=== PATIENT | male | born 1945 | race Caucasian/White ===

== ENCOUNTER 2016-08-22 10:15 | Emergency (ER) | payer MEDICARE, OTHER ==
--- NOTE | 2016-08-22 10:35 | ED Physician Documentation ---
General Adult - HISTORIAN Historian: patient - HPI Stated Complaint: sob Chief Complaint: General Adult Onset: hours Timing: still present Severity: moderate Further Comments: yes (Pt is a 71 yo male sent from jail for low blood pressure readings there and complaint of weakness. Pt is developmentally delayed. No c/o n/v, fever, sob. Pt has hx frequent UTI's.) - ROS CONST: weakness, other (malaise) EYES/ENT: none CVS/RESP: none GI/: none MS/SKIN/LYMPH: none - PAST HX Past History: hypertension, other (HLD, DM, seizures, GERD) Allergies/Adverse Reactions: Allergies Allergy/AdvReac Type Severity Reaction Status Date / Time No Known Allergies Allergy Verified 08/22/16 11:01 Home Medications: Ambulatory Orders Medication Instructions Recorded Lamotrigine [Lamictal] 75 mg PO D 12/10/12 Paliperidone [Invega] 9 mg PO D 12/03/15 Acetaminophen [Tylenol] 650 mg PO Q4 PRN 08/22/16 Ipratropium/Albuterol Sulfate 3 ml NEB TID 08/22/16 [Duoneb] Melatonin 6 mg PO HS 08/22/16 Omeprazole [Prilosec] 40 mg PO QDAY 08/22/16 - SOCIAL HX Smoking History: non-smoker - FAMILY HX Family History: No - VITAL SIGNS Vital Signs: Vital Signs Temp Pulse Resp BP Pulse Ox 96/53 03/03/16 14:00 - REVIEWED ASSESSMENTS Nursing Assessment Reviewed: Yes Vitals Reviewed: Yes Progress - Progress Progress: CXR: Low lung volumes are observed. There is no infiltrate or pleural effusion. Heart size and pulmonary vascularity are upper normal. Osseous structures are unremarkable. NS 1 L IVF much improved Bandemia Rx Levaquin 500 mg po qd x 7 days, 1st dose in ER. - EKG/XRAY/CT EKG: NSR (HR=75; LBBB.) ED Results Lab/Radiology - Orders Orders: ED Orders Category Date Time Status Continuous EKG monitoring Q30M Care 08/22/16 10:27 Active Continuous Pulse Oximetry Q30M Care 08/22/16 10:[address] Saline Lock/IV NOW Care 08/22/16 10:27 Active CHEST 1 VIEW [RAD] Stat Exams 08/22/16 10:27 Ordered CBC/PLATELET/DIFF Routine Lab 08/22/16 10:30 Received CMP Routine Lab 08/22/16 10:30 Received CREATINE KINASE Routine Lab 08/22/16 10:30 Received TROPONIN I (cTnI) Stat Lab 08/22/16 10:30 Received Chem Sticks Med 08/23/16 07:30 Ordered 1 each CHEMQ EKG WITH COMPARISON Stat Ther 08/22/16 10:27 Ordered General Adult Physical Exam - PHYSICAL EXAM GENERAL APPEARANCE: mild distress EENT: eye inspection normal, ENT inspection normal, pharynx normal NECK: normal inspection, supple RESPIRATORY: no resp distress, chest non-tender, breath sounds normal, other ( distant breath sounds) CVS: reg rate & rhythm, heart sounds normal ABDOMEN: soft, no organomegaly, normal bowel sounds SKIN: warm/dry, normal color EXTREMITIES: non-tender, normal range of motion NEURO: motor nml, sensation nml, other (baseline ms) Discharge Clincal Impression: Bandemia, Hx of recurrent urinary tract infection, Dehydration, Estrellita infection of genital region Referrals: Cassius Beyer MD [Primary Care Provider] - Home Medications: Ambulatory Orders Lamotrigine [Lamictal] 75 mg PO D 12/10/12 Paliperidone [Invega] 9 mg PO D 12/03/15 Acetaminophen [Tylenol] 650 mg PO Q4 PRN 08/22/16 Ipratropium/Albuterol Sulfate [Duoneb] 3 ml NEB TID 08/22/16 Melatonin 6 mg PO HS 08/22/16 Omeprazole [Prilosec] 40 mg PO QDAY 08/22/16 Condition: Good Disposition: 04 XFER FDC Decision to Admit: NO Decision Time: 13:32
[2016-08-22] MEDS ORDERED: 0.9 % SODIUM CHLORIDE 500 ML IV ONE ×2 (10:42→12:39)
[2016-08-22 10:51] LABS: eGFR (African) > 60; eGFR (Non-African) > 60
[2016-08-22 11:01] LABS: MONOCYTES % 1 % (0-11); SEGMENTED NEUTROPHILS % 79 % (39-79)
[2016-08-22 12:44] LABS: APPEARANCE,URINE Slightly Cloudy (CLEAR); COLOR,URINE Amber (YELLOW); OCCULT BLOOD,URINE Negative (NEGATIVE); UROBILINOGEN URINE 0.2 Eu (0.2-1.0)
[2016-08-22 12:56] LABS: AMORPHOUS SEDIMENT,UR FEW (NEGATIVE)
[2016-08-22] MEDS ORDERED: NYSTATIN POWDER BOTTLE TP SCH (13:00)
[2016-08-22] MEDS ORDERED: LEVOFLOXACIN 500 MG TABLET PO ONE (13:16)
[2016-08-22 13:53] VITALS: BP 132/64
--- NOTE | 2016-08-22 18:55 | Diagnostic Imaging Report ---
ANDREA VICENTE [facility] [address] [facility] [address] [place] [address]. [address] Report Submission Date: Aug 22, 2016 11:36:31 AM CDT Patient Study Name: MELCHOR HURD Date: Aug 22, 2016 11:06:57 AM CDT Modality Type: CR Gender: M Description: CHEST : 45 Institution: [facility] Physician: ANDREA VICENTE Portable chest History: Cough Findings: Low lung volumes are observed. There is no infiltrate or pleural effusion. Heart size and pulmonary vascularity are upper normal. Osseous structures are unremarkable. Impression: Low lung volumes. Electronically signed on Aug 22, 2016 11:36:31 AM CDT by: Melchor TERRELL
== END 2016-08-22 13:45 ==
LOC: ED 10:15
DX: N39.0 Urinary tract infection, site not specified (principal); E86.0 Dehydration
CPT/HCPCS: 51701; 71010; 80053; 81002; 82550; 83880; 84484; 85025; 87040; 96360; 99283; 99284; J7060; S1016

== ENCOUNTER 2017-03-03 12:20 | Emergency (ER) | payer MEDICARE, OTHER ==
[2017-03-03 12:46] LABS: eGFR (African) > 60; eGFR (Non-African) > 60
[2017-03-03 13:49] LABS: APPEARANCE,URINE Clear (CLEAR); COLOR,URINE Yellow (YELLOW); OCCULT BLOOD,URINE Negative (NEGATIVE)
[2017-03-03 13:55] LABS: AMORPHOUS SEDIMENT,UR FEW (NEGATIVE)
[2017-03-03 14:21] LABS: BASO % 0.2 % (0.0-1.5); EOS % 0.3 % (0.0-6.8); MCH. 30.3 pg (28.0-34.0); MCV 87.5 fL (80.0-100.0); MONOCYTE % 5.1 % (0.0-11.0); MONOCYTE ABS # 0.44 thou/uL (0.00-0.90); PLATELET COUNT 256 thou/uL (130-400)
[2017-03-03 14:26] VITALS: BP 97/59
--- NOTE | 2017-03-03 15:26 | Diagnostic Imaging Report ---
NELLIE HARRELL (ETHAN) - ER [facility] [address] [facility].[address] [address] Report Submission Date: Mar 03, 2017 12:58:11 PM CDT Patient Study Name: MELCHOR HURD Date: Mar 03, 2017 12:40:39 PM CDT Modality Type: CR Gender: M Description: CHEST : 45 Institution: [facility] Physician: NELLIE HARRELL) - ER Ap portable upright radiographs of the chest Clinical history: Cough and dyspnea Comparison August 22, 2016 Technique: anterior /posterior portable upright Findings: The lung diaz are clear. Cardiomegaly and aortic tortuosity are stable. Lung diaz are better ventilated. There is thoracic spondylosis. No pleural effusion is seen. There is no hilar or mediastinal mass. Impression: No acute pulmonary disease Unchanged cardiomegaly and aortic tortuosity Improve lung filled ventilation Electronically signed on Mar 03, 2017 12:58:11 PM CDT by: Jose TERRELL
--- NOTE | 2017-03-10 19:28 | ED Physician Documentation ---
General Adult - HISTORIAN Historian: patient, other ([facility] staff) - HPI Stated Complaint: pale per [facility] Chief Complaint: General Adult Further Comments: yes (71 year old male patient brought in via EMS from [facility]. Staff states patient was "hypotension", pale and SOB earlier today. No BP documented. Patient denies any discomfort or SOB on arrival to ER. States " I want to go to [facility] and go home".) - ROS CONST: no problems EYES/ENT: none CVS/RESP: none GI/: none MS/SKIN/LYMPH: none NEURO/PSYCH: denies: headache - PAST HX Past History: hypertension, other (GERD, anxiety, depression, HTN) Allergies/Adverse Reactions: Allergies Allergy/AdvReac Type Severity Reaction Status Date / Time No Known Allergies Allergy Verified 08/22/16 11:01 Home Medications: Ambulatory Orders Medication Instructions Recorded Lamotrigine [Lamictal] 75 mg PO D 12/10/12 Acetaminophen [Tylenol] 650 mg PO Q4 PRN 08/22/16 Melatonin 6 mg PO HS 08/22/16 Omeprazole [Prilosec] 40 mg PO QDAY 08/22/16 Clonazepam [Clonazepam] 1 mg PO TID 03/03/17 Furosemide [Lasix] 40 mg PO DAILY 03/03/17 Lisinopril [Prinivil] 20 mg PO QD 03/03/17 - SOCIAL HX Smoking History: non-smoker - FAMILY HX Family History: No - VITAL SIGNS Vital Signs: Vital Signs Temp Pulse Resp BP Pulse Ox 99.0 F 60 14 97/59 96 03/03/17 12:24 03/03/17 14:24 03/03/17 14:24 03/03/17 14:24 03/03/17 14:24 - REVIEWED ASSESSMENTS Nursing Assessment Reviewed: Yes Vitals Reviewed: Yes Progress - Progress Progress: No hypotension or SOB while in ER. Family at bedside, updated on lab. Questions answered. ED Results Lab/Radiology - Lab Results Lab Results: Lab Results 03/03/17 03/03/17 03/03/17 13:45 12:30 12:30 WBC Comment 8.61 thou/uL thou/uL (4.00-12.00) RBC 4.39 mil/uL mil/uL (3.80-5.80) Hemoglobin (Send Out) 13.3 g/dL g/dL (12.0-18.0) Hct (Send Out) 38.4 % % (37.0-53.0) MCV (Send Out) 87.5 fL fL (80.0-100.0) MCH 30.3 pg pg (28.0-34.0) MCHC (Send Out) 34.6 g/dL g/dL (30.0-36.0) RDW Coeff of Karthik 13.5 % % (11.3-14.7) Plt Count 256 thou/uL thou/uL (130-400) Absolute Lymphs (auto) 1.70 thou/uL thou/uL (0.60-4.00) Absolute Monos (auto) 0.44 thou/uL thou/uL (0.00-0.90) Absolute Basos (auto) 0.02 thou/uL thou/uL (0.00-0.50) Neutrophils % 74.6 % % (39.0-79.0) Absolute Neutrophils 6.42 thou/uL thou/uL (1.50-7.70) Lymphocytes 19.7 % % (16.0-50.0) Monocytes 5.1 % % (0.0-11.0) Absolute Eosinophils 0.03 thou/uL thou/uL (0.00-0.60) Basophilia % 0.2 % % (0.0-1.5) Eosinophil Count 0.3 % % (0.0-6.8) Sodium 132 mmol/L L mmol/L (137-145) Potassium 3.8 mmol/L mmol/L (3.5-5.1) Chloride 96 mmol/L L mmol/L (98-107) Carbon Dioxide 28 mmol/L mmol/L (22-30) BUN 18 mg/dL mg/dL (9-20) Creatinine 0.70 mg/dL mg/dL (0.66-1.25) Estimated Creat Clear 124 Est GFR ( Amer) > 60 (60 - ) Est GFR (Non-Af Amer) > 60 (60 - ) Glucose 94 mg/dL mg/dL (74-106) Calcium 9.0 mg/dL mg/dL (8.4-10.2) Total Bilirubin 0.3 mg/dL mg/dL (0.2-1.3) AST 18 U/L U/L (15-46) ALT 23 U/L U/L (13-69) Alkaline Phosphatase 78 U/L U/L (38-126) Total Protein 6.8 g/dL g/dL (6.3-8.2) Albumin 3.7 g/dL g/dL (3.5-5.0) Urine Color Yellow (YELLOW) Urine Appearance Clear (CLEAR) Urine pH 7.0 (5.0 - 8.0) Ur Specific [place] 1.015 (1.010-1.030) Urine Protein Negative mg/dL mg/dL (NEGATIVE) Urine Ketones Negative mg/dL mg/dL (NEGATIVE) Urine Occult Blood Negative (NEGATIVE) Urine Nitrite Negative (NEGATIVE) Urine Bilirubin Negative (NEGATIVE) Urine Urobilinogen 1.0 Eu Eu (0.2-1.0) Ur Leukocyte Esterase 1+ H (NEGATIVE) Urine RBC 0-2 (0-2 HPF) Urine WBC 2-5 (0-5 HPF) Ur Squamous Epith Cells Few (NEG-FEW) Amorphous Sediment Few H (NEGATIVE) Urine Mucus Present H (NEGATIVE) Urine Glucose Negative mg/dL mg/dL (NEGATIVE) - Orders Orders: ED Orders Category Date Time Status CHEST 2 VIEW [CHEST P.A.&LAT 2 VIEWS] [RAD] Stat Exams 03/03/17 Completed CBC REF Stat Lab 03/03/17 12:30 Completed CMP Stat Lab 03/03/17 12:30 Completed UA W/MICRO IF INDICATED Stat Lab 03/03/17 13:45 Completed URINE CULTURE Stat Lab 03/03/17 13:45 Completed General Adult Physical Exam - PHYSICAL EXAM GENERAL APPEARANCE: [id number] N EENT: eye inspection normal, EVARISTO RESPIRATORY: no resp distress, chest non-tender, breath sounds normal CVS: heart sounds normal, equal pulses, no murmur, no gallop, PMI nml, no JVD, no friction rub, irregularly irregular rhy ABDOMEN: soft, no organomegaly, normal bowel sounds, no abdominal bruit, no distension SKIN: warm/dry, normal color, other (groin with erythema, thick white discharge) EXTREMITIES: non-tender, normal range of motion, no evidence of injury, no edema , J, USER EXPERIENCE ANALYST NEURO: oriented X3, motor nml, sensation nml, mood/affect nml, other (at his baseline; Mental retardation. Calm and pleasant) Discharge Clincal Impression: Estrellita infection of genital region Referrals: Cassius Beyer MD [Primary Care Provider] - 2 Days Condition: Stable Disposition: 01 HOME, SELF-CARE Decision to Admit: NO Decision Time: 14:05
== END 2017-03-03 14:15 | disposition home or self-care (01) ==
LOC: ED 12:20
DX: N49.9 Inflammatory disorder of unspecified male genital organ (principal)
CPT/HCPCS: 71020; 80053; 81002; 85025; 87086; 99284

== ENCOUNTER 2018-01-01 16:26 | Emergency (ER) | payer MEDICARE, OTHER ==
--- NOTE | 2018-01-01 16:39 | ED Physician Documentation ---
Fall - HISTORIAN Historian: patient - HPI Stated Complaint: fall - feels like he is in a tunnel pain (head right arm and short of breat Chief Complaint: Fall Onset: just prior to arrival Where: home Context: tripped r: mild Associated Symptoms:: no loss of consciousness Location of Pain/Injury: head, upper extremity Injury to Right Extremity: arm Injury to Left Extremity: none Further Comments: yes (Per report he has bradycardia, he states he fell and he is complaining of head pain right side and right upper arm pain. He states he is also short on air. 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 ) Immunizations: UTD - SOCIAL HX Smoking History: non-smoker Alcohol Use: none Drug Use: none - FAMILY HX Family History: none - VITAL SIGNS Vital Signs: Vital Signs Temp Pulse Resp BP Pulse Ox 97/59 03/03/17 14:24 - REVIEWED ASSESSMENTS Nursing Assessment Reviewed: Yes Vitals Reviewed: Yes <Rachell Hadley - Last Filed: 01/01/18 18:00> - VITAL SIGNS Vital Signs: Vital Signs Temp Pulse Resp BP Pulse Ox 98.8 F 46 L 17 137/65 98 01/01/18 16:26 01/01/18 16:26 01/01/18 16:26 01/01/18 16:26 01/01/18 16:26 <MCKAYLA GUERRERO - Last Filed: 01/01/18 21:27> - PAST HX Allergies/Adverse Reactions: Allergies Allergy/AdvReac Type Severity Reaction Status Date / Time No Known Allergies Allergy Verified 01/01/18 17:34 Home Medications: Ambulatory Orders Medication Instructions Recorded Acetaminophen [Tylenol] 650 mg PO Q4 PRN 08/22/16 Benztropine Mesylate 1 tab PO BID 01/01/18 Clonazepam [Klonopin] 1 tab PO QID 01/01/18 Fluvoxamine Maleate [Luvox] 1 tab PO HS 01/01/18 Lamotrigine [Lamictal] 1 tab PO DAILY 01/01/18 Lurasidone HCl [Latuda] 1 tab PO BID 01/01/18 Melatonin 3 tab PO HS 01/01/18 Sertraline HCl [Zoloft] 1 tab PO HS 01/01/18 Progress - Progress Progress: 1740: back to ER from xray . No complaints at this time DG <Rachell Hadley - Last Filed: 01/01/18 18:00> ED Results Lab/Radiology - Radiology Radiology Impressions: Examination: CT head without contrast History: CT HEAD W/O, FALL TODAY, PT COMPLAINS OF HEADACHE (Hx) Comparison exam: None available Technique: Noncontrast head CT protocol. Findings: Ventricles and sulci are prominent, though consistent for patient age. Cerebrocerebellar parenchyma demonstrates periventricular low attenuation consistent with small vessel disease. No evidence for parenchymal hemorrhage. No evidence for mass or mass effect. No midline shift. No extra axial fluid collections. Partial visualization of the paranasal sinuses, mastoid air cells, orbits, skull and scalp without gross irregularity. Streak artifact from dental hardware. Impression: Advanced age related changes. No acute parenchymal process. No hemorrhage. Electronically signed on Jan 01, 2018 5:51:58 PM CDT by: Siddhartha Santana Examination: Portable chest History: Evaluate lungs. PCXR, SOA TODAY, POST FALL (Hx) Comparison exam: None available. Findings: Single view of the chest demonstrates lordotic positioning. Prominent cardiac and mediastinal silhouette. Lung diaz without focal infiltrate. No blunting of the costophrenic margins. Articular degenerative changes. Impression: No acute pulmonary process. Electronically signed on Jan 01, 2018 5:58:51 PM CDT by: Siddhartha Santana Examination: Plain film right humerus History: RT HUMERUS, FALL TODAY, PT COMPLAINS OF RT ARM PAIN, HX OF FX HUMERUS OF UNKNOWN AGE (Hx) Comparison exams: None provided Findings: 2 views of the right humerus demonstrates an old appearing fracture involving the proximal humerus. Generalized osteopenia. No acute appearing fracture deformity. Articular degenerative changes. Impression: Old proximal humeral fracture. No acute appearing osseous abnormality. If still suspect fracture - specifically through the old fracture deformity a region, consider obtaining CT scan to further evaluate. Electronically signed on Jan 01, 2018 5:56:23 PM CDT by: Siddhartha Santana - Orders Orders: ED Orders Category Date Time Status Place IV Lock 1T Care 01/01/18 16:34 Ordered CHEST 2VIEW [RAD] Stat Exams 01/01/[address] BRAIN W/O CONTRAST Stat Exams 01/01/18 Ordered HUMERUS 2 VIEWS OR MORE [RAD] Stat Exams 01/01/18 Ordered BNP [NT-proBNP] Stat Lab 01/01/18 Ordered CBC/PLATELET/DIFF Stat Lab 01/01/18 16:33 Ordered CMP Stat Lab 01/01/18 16:33 Ordered <Rachell Hadley - Last Filed: 01/01/18 18:00> - Lab Results Lab Results: Lab Results 01/01/18 01/01/18 Unknown 16:33 WBC 6.40 K/ul K/ul (4.00-12.00) RBC 4.63 M/ul M/ul (3.90-5.20) Hgb 14.6 g/dL g/dL (12.0-18.0) Hct 42.6 % % (37.0-53.0) MCV 92.0 fl fl (80.0-100.0) MCH 31.6 pg pg (28.0-34.0) MCHC 34.3 g/dL g/dL (30.0-36.0) RDW 13.2 % % (11.3-14.3) Plt Count 253 K/mm3 K/mm3 (130-400) Neut % (Auto) 62.4 % % (39.0-79.0) Lymph % (Auto) 28.8 % % (16.0-50.0) [place] % (Auto) 5.9 % % (0.0-11.0) Eos % (Auto) 0.7 % % (0.0-6.8) Baso % (Auto) 0.4 (0.0-1.5) Neut # (Auto) 4.0 # k/uL # k/uL (1.4-7.7) Lymph # (Auto) 1.8 # k/uL # k/uL (0.6-4.0) [place] # (Auto) 0.4 # k/uL # k/uL (0.0-0.9) Eos # (Auto) 0.0 # k/uL # k/uL (0.0-0.6) Baso # (Auto) 0.0 # k/uL # k/uL (0.0-0.5) Reactive Lymphs % 1.9 % % (0.0-5.0) Reactive Lymphs # 0.1 # k/uL # k/uL (0.0-0.8) NT-Pro-B Natriuret Pep 393.8 pg/mL H pg/mL (15.0-125.0) - Orders Orders: ED Orders Category Date Time Status Place IV Lock 1T Care 01/01/18 16:34 Active CHEST 1VIEW [RAD] Stat Exams 01/01/[address] BRAIN W/O CONTRAST Stat Exams 01/01/18 Completed HUMERUS 2 VIEWS OR MORE [RAD] Stat Exams 01/01/18 Completed BNP [NT-proBNP] Stat Lab 01/01/18 Completed CBC/PLATELET/DIFF Stat Lab 01/01/18 16:33 Completed EKG WITH COMPARISON Stat Ther 01/01/18 Ordered <MCKAYLA GUERRERO - Last Filed: 01/01/18 21:27> Fall Physical Exam - Physical Exam General Appearance: no acute distress, alert. 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 no open areas, no redness, FROM pulses + and sensation + ) <Rachell Hadley - Last Filed: 01/01/18 18:00> Discharge <Rachell Hadley - Last Filed: 01/01/18 18:00> Decision to Admit: NO Decision Time: 21:25 <MCKAYLA GUERRERO - Last Filed: 01/01/18 21:27> Clincal Impression: Fall Qualifiers: Encounter type: initial encounter Qualified Code(s): W19.XXXA - Unspecified fall, initial encounter Referrals: Cassius Beyer MD [Primary Care Provider] - 2 Days Additional Instructions: Return to the ER immediately if you have prolonged vomiting or unusual behavior. Your lab results and CT scan results were reassuring. Condition: Good Disposition: 01 HOME, SELF-CARE
[2018-01-01 16:59] LABS: BASOPHILS % 0.4 (0.0-1.5); EOSINOPHILS % 0.7 % (0.0-6.8); MEAN CORPUSCULAR HEMOGLOBIN 31.6 pg (28.0-34.0); MONOCYTES % 5.9 % (0.0-11.0)
--- NOTE | 2018-01-01 19:51 | Diagnostic Imaging Report ---
TOMMY NOE [facility] [address] [facility] [address] [place], [place]. [address] Report Submission Date: Jan 01, 2018 5:51:58 PM CDT Patient Study Name: MELCHOR HURD Date: Jan 01, 2018 4:59:55 PM CDT Modality Type: CT Gender: M Description: CT BRAIN W/O CONTRAST : 45 Institution: [facility] Physician: TOMMY NOE Examination: CT head without contrast History: CT HEAD W/O, FALL TODAY, PT COMPLAINS OF HEADACHE (Hx) Comparison exam: None available Technique: Noncontrast head CT protocol. Findings: Ventricles and sulci are prominent, though consistent for patient age. Cerebrocerebellar parenchyma demonstrates periventricular low attenuation consistent with small vessel disease. No evidence for parenchymal hemorrhage. No evidence for mass or mass effect. No midline shift. No extra axial fluid collections. Partial visualization of the paranasal sinuses, mastoid air cells, orbits, skull and scalp without gross irregularity. Streak artifact from dental hardware. Impression: Advanced age related changes. No acute parenchymal process. No hemorrhage. Electronically signed on Jan 01, 2018 5:51:58 PM CDT by: Siddhartha TERRELL
--- NOTE | 2018-01-01 19:52 | Diagnostic Imaging Report ---
TOMMY NOE [facility] [address] [facility] [address] [place], [place]. [address] Report Submission Date: Jan 01, 2018 5:58:51 PM CDT Patient Study Name: MELCHOR HURD Date: Jan 01, 2018 5:20:02 PM CDT Modality Type: DX Gender: M Description: CHEST : 45 Institution: [facility] Physician: TOMMY NOE Examination: Portable chest History: Evaluate lungs. PCXR, SOA TODAY, POST FALL (Hx) Comparison exam: None available. Findings: Single view of the chest demonstrates lordotic positioning. Prominent cardiac and mediastinal silhouette. Lung diaz without focal infiltrate. No blunting of the costophrenic margins. Articular degenerative changes. Impression: No acute pulmonary process. Electronically signed on Jan 01, 2018 5:58:51 PM CDT by: Siddhartha TERRELL
--- NOTE | 2018-01-01 19:53 | Diagnostic Imaging Report ---
TOMMY NOE [facility] [address] [facility] [address] Report Submission Date: Jan 01, 2018 5:56:23 PM CDT Patient Study Name: MELCHOR HURD Date: Jan 01, 2018 5:10:12 PM CDT Modality Type: DX Gender: M Description: UPPER EXTREMITY : 45 Institution: [facility] Physician: TOMMY NOE Examination: Plain film right humerus History: RT HUMERUS, FALL TODAY, PT COMPLAINS OF RT ARM PAIN, HX OF FX HUMERUS OF UNKNOWN AGE (Hx) Comparison exams: None provided Findings: 2 views of the right humerus demonstrates an old appearing fracture involving the proximal humerus. Generalized osteopenia. No acute appearing fracture deformity. Articular degenerative changes. Impression: Old proximal humeral fracture. No acute appearing osseous abnormality. If still suspect fracture - specifically through the old fracture deformity a region, consider obtaining CT scan to further evaluate. Electronically signed on Jan 01, 2018 5:56:23 PM CDT by: Siddhartha TERRELL
[2018-01-01 21:38] VITALS: BP 130/63
[2018-01-02 08:24] LABS: APPEARANCE,URINE CLEAR (CLEAR); COLOR,URINE YELLOW (YELLOW); OCCULT BLOOD,URINE NEGATIVE (NEGATIVE); UROBILINOGEN URINE 0.2 Eu (0.2-1.0)
== END 2018-01-01 21:35 | disposition home or self-care (01) ==
LOC: ED 16:26
DX: M79.601 Pain in right arm (principal); S80.211A Abrasion, right knee, initial encounter; R06.02 Shortness of breath; R51 Headache; W19.XXXA Unspecified fall, initial encounter; Y92.9 Unspecified place or not applicable; Y93.9 Activity, unspecified; Y99.9 Unspecified external cause status
CPT/HCPCS: 70450; 71045; 73060; 80053; 81002; 83880; 85025; 99284; S1016